=== PATIENT | male | born 1965 | race Caucasian/White ===

== ENCOUNTER 2018-03-02 14:52 | Observation (INO) | payer MEDICARE ==
[2015-11-20 14:29] VITALS: BMI 18.9
[~2018-03-02 14:52] MED LIST: AMITRIPTYLINE100 MG PO; ANOLOR-300 CAPS1 CAP PO; DESERYL100 MG PO; ELAVIL10 MG; LEVAQUIN500 MG PO; NAPROSYN500 MG PO; NEURONTIN600 MG PO; ULTRAM50 MG PO; VALIUM5 MG PO; VITAMIN D5000 UNIT PO; WELLBUTRIN SR150 MG PO; ZANAFLEX4 MG PO
[2018-03-02 15:18] LABS: BASOPHILS 0.3 % (0-2); EOSINOPHILS 2.1 % (0-7); HEMOGLOBIN 12.6 g/dL (13.5-17.5); IMMATURE GRANULOCYTES 0.3 % (0-5); LYMPHOCYTES 10.7 % (15-50); MCH 29.2 pg (26.0-34.0); MCHC 34.1 g/dL (31.0-37.0); MCV 85.6 fL (80.0-100.0); MEAN PLATELET VOLUME 9.8 fL (7.4-10.4); MONOCYTES 6.3 % (2-11); NEUTROPHILS 80.3 % (40-80); RBC 4.32 10x6/uL (4.20-6.10); RDW 13.4 % (11.5-14.5); WBC 5.7 10x3/uL (4.8-10.8)
[2018-03-02 15:20] LABS: PLATELET COUNT 165 10x3/uL (130-400)
[2018-03-02 15:36] LABS: ALBUMIN 3.6 g/dL (3.4-5.0); ALKALINE PHOSPHATASE 63 U/L (46-116); ALT (SGPT) 22 U/L (10-68); CALC OSMOLALITY 274 mosm/kg (275-300); CALCIUM 8.7 mg/dL (8.5-10.1); CARBON DIOXIDE 28.3 mmol/L (21.0-32.0); CHLORIDE - SERUM 103 mmol/L (98-107); CREATININE - SERUM 1.9 mg/dL (0.6-1.3); GLUCOSE 92 mg/dL (74-106); POTASSIUM - SERUM 4.1 mmol/L (3.5-5.1); PROTEIN - SERUM 6.8 g/dL (6.4-8.2); SODIUM 138 mmol/L (136-145); UREA NITROGEN 9 mg/dL (7-18); eGFR NON AFRICAN AMERICAN 40 mL/min (90-120)
[2018-03-02 15:57] LABS: CREATINE KINASE 1278 UL (21-232); LIPASE 52 U/L (73-393); MAGNESIUM - SERUM 1.7 mg/dL (1.8-2.4); PRO BNP 177 pg/mL (0-125); TROPONIN-I < 0.017 ng/mL (0.000-0.060)
[2018-03-02 15:58] LABS: CKMB 31.9 U/L (0.0-3.6)
== END 2018-03-02 18:13 | disposition left against medical advice (07) ==
LOC: D.ER 14:52 → D.EDHOLD 16:49 → OBSVTIME 16:49 → D.ER 17:21 → D.EDHOLD 17:21 → D.MS 18:13 → D.EDHOLD 18:13 → D.MS 18:13 → D.EDHOLD 18:42 → D.MS 18:42
PROVIDERS: Family Medicine
DX: R53.1 Weakness (principal); Z91.81 History of falling; R52 Pain, unspecified

== ENCOUNTER 2019-02-07 11:36 | Emergency (ER) | payer MEDICARE ==
[~2019-02-07] VITALS: Ht 177.8 cm; Wt 81.8 kg
[2019-02-07 11:38] VITALS: Ht 177.8 cm; Wt 81.8 kg
[2019-02-07] MEDS ORDERED: VOLTAREN75 MG PO (15:44)
[2019-02-07 16:17] VITALS: BP 138/78
== END 2019-02-07 16:10 | disposition home or self-care (01) ==
LOC: D.ER 11:36
DX: S70.01XA Contusion of right hip, initial encounter (principal); W01.0XXA Fall on same level from slipping, tripping and stumbling without subsequent striking against object, initial encounter; Y93.89 Activity, other specified; Y92.019 Unspecified place in single-family (private) house as the place of occurrence of the external cause; M25.512 Pain in left shoulder